=== PATIENT | female | born 1990 | race Caucasian/White ===

== ENCOUNTER 2023-05-03 01:22 | Emergency (ER) | payer BC, SELFPAY ==
[2023-05-03 01:22] VITALS: BMI 21.8
[2023-05-03 03:09] LABS: % Basophils 0.5 % (0-2); % Eosinophils 0.8 % (0-6); % Immature Granulocytes 0.2 % (0-0.5); % Lymphocytes 30.6 % (20.5-51.1); % Monocytes 11.7 % (1.7-9.3); % Neutrophils 56.2 % (42.2-75.2); Absolute Basophils 0.1 10^3/uL (0-0.2); Absolute Eosinophils 0.1 10^3/uL (0-0.7); Absolute Lymphocytes 3.2 10^3/uL (1.2-3.4); Absolute Monocytes 1.2 10^3/uL (0.1-0.6); Absolute Neutrophils 5.9 10^3/uL (1.4-6.5); Hematocrit 36.9 % (37.0-47.0); Hemoglobin 13.3 g/dL (12.0-16.0); Mean Corpuscular Hgb 30.5 pg (27.0-31.0); Mean Corpuscular Volume 84.6 fL (81.0-99.0); Mean Platelet Volume 11.7 fL (7.4-10.4); Nucleated Red Blood Cells % 0 %; Platelet Count 210 10^3/uL (130-400); Red Blood Cell Count 4.36 10^6/uL (4.20-5.40); Red Cell Dist. Width 12.8 % (11.5-14.5); White Blood Cell Count 10.5 10^3/uL (4.8-10.8)
[2023-05-03 03:22] VITALS: BP 119/76
[2023-05-03 03:22] LABS: Blood Urea Nitrogen 8 mg/dl (7-17); Calcium 9.3 mg/dl (8.4-10.2); Carbon Dioxide 26 mmol/L (22-30); Chloride 99 mmol/L (98-107); Estimated Creatinine Clearance 117 ml/min; Glucose 80 mg/dl (70-99); Potassium 3.2 mmol/L (3.5-5.1); Sodium 132 mmol/L (135-145); eGFR > 60.00
[2023-05-03 03:36] LABS: Alcohol None Detected
[2023-05-03 03:37] LABS: Amphetamines Positive (Negative); Barbiturates Negative (Negative); Benzodiazepines Negative (Negative); Buprenorphine Negative (Negative); Cocaine Negative (Negative); Marijuana Negative (Negative); Methadone Negative (Negative); Methamphetamines Negative (Negative); Opiates Negative (Negative); Phencyclidine Negative (Negative); Tricyclic Antidepressants Negative (Negative)
[2023-05-03 03:46] LABS: Fentanyl, Urine Negative (Negative)
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
[2023-05-03 04:20] VITALS: BP 121/76
[2023-05-03 05:27] VITALS: BP 142/82
[2023-05-03 06:00] VITALS: BP 120/54
[2023-05-03 06:52] LABS: HCG, Serum Qualitative Screen Negative
[2023-05-03 07:15] VITALS: BP 92/47
== END 2023-05-03 07:36 ==
LOC: EMR 01:22
PROVIDERS: EMERGENCY PHYSICIAN Emergency Medicine
DX: S96.912A Strain of unspecified muscle and tendon at ankle and foot level, left foot, initial encounter (principal); S60.051A Contusion of right little finger without damage to nail, initial encounter; W19.XXXA Unspecified fall, initial encounter; X50.1XXA Overexertion from prolonged static or awkward postures, initial encounter; M79.641 Pain in right hand; R42 Dizziness and giddiness; R44.3 Hallucinations, unspecified; F41.9 Anxiety disorder, unspecified; F17.200 Nicotine dependence, unspecified, uncomplicated; G47.419 Narcolepsy without cataplexy; F22 Delusional disorders
CPT/HCPCS: 99285; 70450; 73130; 73610; 80048; 80306; 80307; 82077; 84703; 85025